=== PATIENT | female | born 1945 | race Caucasian/White ===

== ENCOUNTER 2021-05-11 17:48 | Inpatient (IN) | payer MEDICARE, OTHER ==
[~2021-05-11] VITALS: Ht 154.9 cm; Wt 65.8 kg
[~2021-05-11 17:48] MED LIST: CARV25TA2 PO; DIGO250T PO; ESOM40CA PO; FURO40TA5 PO; GABA-534 PO; HYDR-4077 PO; ISOS60TA72 PO; LORA1TAB PO; NITR0.4T SL; RIVA10TA PO; ROSU10TA2 PO; [UNRECOGNIZED DRUG - CODE] PO
--- NOTE | 2021-05-11 18:01 | NUR ---
BIB ra c/o R sided chest pain since last night with sob. The patient denies pain at this time. Respiration regular and unlabored. Attached to the monitor.
[2021-05-11] MEDS ORDERED: METO50TA16 PO (18:06)
[2021-05-11] MEDS ORDERED: LINA145C PO (18:06)
[2021-05-11] MEDS ORDERED: DEXL60CA3 PO (18:06)
[2021-05-11] MEDS ORDERED: OLME20TA23 PO (18:06)
[2021-05-11] MEDS ORDERED: RIVA10TA PO (18:07)
[2021-05-11] MEDS ORDERED: NITROGLYCERIN PACKET 1 GM PACKET TD ONE (18:30)
[2021-05-11 18:33] LABS: BASOPHILS % (AUTO) 0.8 % (0.0-2.0); EOSINOPHILS % (AUTO) 0.3 % (0.0-6.0); HEMATOCRIT 30 % (33-45); HEMOGLOBIN 9.8 g/dL (11.5-14.8); LYMPHOCYTES % (AUTO) 24.5 % (20.0-44.0); MEAN CORPUSCULAR HGB CONC 33 g/dl (31.0-36.0); MEAN CORPUSCULAR VOLUME 84 fL (82-100); MONOCYTES # (AUTO) 0.5 K/uL (0.1-1.30); MONOCYTES % (AUTO) 12.4 % (2.0-12.0); NEUTROPHILS # (AUTO) 2.6 K/uL (1.8-8.9); PLATELET COUNT (AUTO) 178 K/uL (150-450); RED BLOOD CELL COUNT(AUTO) 3.58 MIL/uL (4.0-5.2); WHITE BLOOD COUNT (AUTO) 4.2 K/uL (4.3-11.0)
--- NOTE | 2021-05-11 18:36 | NUR ---
covid swab done and sent to the lab
[2021-05-11 18:40] LABS: CALCIUM, SERUM 8.9 mg/dL (8.5-10.1); CREATININE 0.8 mg/dL (0.6-1.3); POTASSIUM 3.3 mmol/L (3.5-5.1)
[2021-05-11] MEDS ORDERED: NITROGLYCERIN PACKET 1 GM PACKET ONE (18:42)
[2021-05-11 18:50] LABS: ALBUMIN 3.4 g/dL (3.4-5.0); BILIRUBIN,DIRECT 0.3 mg/dL (0.0-0.2); BILIRUBIN,TOTAL 0.8 mg/dL (0.2-1.0); TOTAL PROTEIN, SERUM 6.9 g/dL (6.4-8.2)
--- NOTE | 2021-05-11 19:21 | NUR ---
ASSUMED CARE. PT RESTING QUIETLY, NO ACUTE DISTRESS NOTED, RESP EVEN AND UNLABORED. NO PAIN OR DISCOMFORT NOTED AT THIS TIME. PT FAMILY EMMBER AT BEDSIDE.
--- NOTE | 2021-05-11 20:16 | NUR ---
ER SPOKE TO DR. PHELPS REGARDING PT ADMISSION.
[2021-05-11] MEDS ORDERED: DOCUSATE SODIUM 100 MG CAPSULE PO PRN (21:00)
[2021-05-11] MEDS ORDERED: MAG HYDROX/AL HYDROX/SIMETH 30 ML UDC PO PRN (21:00)
[2021-05-11] MEDS ORDERED: ACETAMINOPHEN 325 MG TABLET PO PRN (21:00)
--- NOTE | 2021-05-11 21:01 | NUR ---
REPORT CALLED TO COIL FINISHERMARK ODOM. WILL TRANSPORT PT VIA ACLS PROTOCOL.
[2021-05-11 21:15] VITALS: BP 157/68
--- NOTE | 2021-05-11 21:15 | NUR ---
Patient admitted at 2114 in stable condition. Brought up by ER nurse. VS 157/68, HR 72, O2 98%, temp 98.8. In no distress. Zofran given for nausea with one episode of emesis. Family at bedside and able to translate for patient history/admitting info. A&Ox4, Pupils equal and reactive to light. Heart rate irregular upon auscultation, shows afib on monitor. L chest pacemaker. Slightly diminished lung sounds to L base. Bowel sounds active x4 quadrants. Legs with +1 pitting edema. Educated patient about bed rest. Oriented patient to unit. Bed in lowest position, side rails up x2, bed locked, semi fowlers. Will continue to monitor.
[2021-05-11] MEDS: ONDANSETRON HCL/PF 4 MG/2 ML VIAL IVP PRN (21:23)
[2021-05-11] MEDS: MORPHINE SULFATE INJ 2 MG/ML DISP.SYRIN IV PRN (22:15)
[2021-05-11] MEDS: NITROGLYCERIN 0.4 MG/TAB BOTTLE SL PRN ×2 (23:49→23:58)
--- NOTE | 2021-05-11 23:51 | NUR ---
Patient c/o increased chest pain 04/29 to L side radiating to back and L shoulder now. First dose of Nitro given at 2350.
--- NOTE | 2021-05-11 23:58 | NUR ---
chest pain still 7/10 to L side radiating to back and L shoulder unrelieved by first dose of nitro. 2nd dose given.
[2021-05-12] VITALS: BP_SYST 119; BP_SYST 152; BP_DIAS 63; BP_DIAS 80
[2021-05-12] MEDS: NITROGLYCERIN 0.4 MG/TAB BOTTLE SL PRN (00:13)
--- NOTE | 2021-05-12 00:40 | NUR ---
CP unrelieved by Morphine and 3 doses of nitro new order from STRIPPER MACHINE OPERATOR Wilstein STAT EKG and troponin.
--- NOTE | 2021-05-12 01:00 | NUR ---
2L NC applied for comfort pt reports SOB, RR 24.
--- NOTE | 2021-05-12 01:27 | NUR ---
Patient reports chest pain decreasing to 3/10. Sweating and tachypnea has ceased. RR 19. Will continue to monitor.
[2021-05-12] MEDS: MORPHINE SULFATE INJ 2 MG/ML DISP.SYRIN IV PRN ×2 (02:19→10:00)
[2021-05-12 04:00] VITALS: BP 152/85
--- NOTE | 2021-05-12 04:41 | NUR ---
Patient woke up with another episode of chest pain this time middle of the chest pressure non-radiating. diaphoresis and chills, tachypnea 22 breaths per minute, O2 2L NC on for comfort. Adjusted temperature in room to keep patient comfortable. THREAD SINGER states just continue giving morphine as per order for now. Continue with serial troponin next 1030.
[2021-05-12] MEDS: ONDANSETRON HCL/PF 4 MG/2 ML VIAL IVP PRN ×3 (05:02→16:57)
--- NOTE | 2021-05-12 05:22 | NUR ---
patient calling again for pain. episode of vomiting x1 clear yellow in color. New order from on-call BAG SORTER to make patient NPO and 1mg Morphine one time dose NOW. extra
[2021-05-12] MEDS ORDERED: MORPHINE SULFATE INJ 2 MG/ML DISP.SYRIN IV ONE (05:30)
--- NOTE | 2021-05-12 06:36 | NUR ---
INSURANCE BILLING SPECIALIST CLOSING NOTES Patient is awake A&Ox4, reports that the morphine relieved her pain a little bit so that it is now 5/10, no longer sweating, having chills, or n/v. Vital signs have been stable throughout the night. 150s SBP or lower. Is looking forward to see MD during rounds,
--- NOTE | 2021-05-12 06:38 | NUR ---
On monitor patient has been Afib with V pacing
[2021-05-12 06:46] LABS: BASOPHILS % (AUTO) 0.7 % (0.0-2.0); EOSINOPHILS % (AUTO) 0.3 % (0.0-6.0); HEMATOCRIT 31 % (33-45); HEMOGLOBIN 10.4 g/dL (11.5-14.8); LYMPHOCYTES % (AUTO) 16.6 % (20.0-44.0); MEAN CORPUSCULAR HGB CONC 33 g/dl (31.0-36.0); MEAN CORPUSCULAR VOLUME 84 fL (82-100); MONOCYTES # (AUTO) 0.5 K/uL (0.1-1.30); MONOCYTES % (AUTO) 8.5 % (2.0-12.0); NEUTROPHILS # (AUTO) 4.6 K/uL (1.8-8.9); NEUTROPHILS % (AUTO) 73.9 % (43.0-81.0); PLATELET COUNT (AUTO) 178 K/uL (150-450); RED BLOOD CELL COUNT(AUTO) 3.74 MIL/uL (4.0-5.2); WHITE BLOOD COUNT (AUTO) 6.3 K/uL (4.3-11.0)
[2021-05-12 07:23] LABS: THYROID STIMULATING HORMONE 2.066 uIU/mL (0.358-3.74)
--- NOTE | 2021-05-12 07:30 | NUR ---
JUNIOR STAFF ACCOUNTANT NOTES PT IN BED, AWAKE, ALERT AND ABLE TO MAKE NEEDS KNOWN, NO COMPLAINT AT THIS TIME, RESPIRAITONS NORMAL, CALL LIGHT WITHIN REACH, KEPT WARM AND COMFORTABLE IN BED.
[2021-05-12 07:36] LABS: DIGOXIN 0.72 ng/mL (0.90-2.00)
[2021-05-12 08:12] VITALS: BP 145/83
[2021-05-12] MEDS ORDERED: NITROGLYCERIN 0.4 MG/TAB BOTTLE SL ONE (08:30)
[2021-05-12] MEDS ORDERED: LORAZEPAM INJ 2 MG/ML VIAL IV PRN (08:30)
[2021-05-12] MEDS ORDERED: METOPROLOL TARTRATE INJ 5 MG/5 ML AMPUL IVP PRN (08:30)
[2021-05-12] MEDS ORDERED: ENOXAPARIN SODIUM 60 MG/0.6 ML DISP.SYRIN SQ SCH ×2 (09:00)
[2021-05-12] MEDS: AMBRISENTAN 5 MG PO SCH (09:00)
[2021-05-12] MEDS ORDERED: METOPROLOL TARTRATE 50 MG TABLET PO SCH (09:00)
[2021-05-12] MEDS ORDERED: Medication Not On Formulary EA (Linaclotide (Linzess) 145 MCG) PO SCH (09:00)
[2021-05-12] MEDS ORDERED: RIVAROXABAN 10 MG TABLET PO SCH (09:00)
[2021-05-12] MEDS: ATORVASTATIN 40 MG TABLET PO SCH (09:01)
[2021-05-12] MEDS: GABAPENTIN 300 MG CAPSULE PO SCH (09:01)
[2021-05-12] MEDS: LOSARTAN POTASSIUM 50 MG TABLET PO SCH (09:03)
[2021-05-12] MEDS: PANTOPRAZOLE 40 MG TABLET.DR PO SCH (09:03)
[2021-05-12] MEDS: ISOSORBIDE MONONITRATE (30MG) 30 MG TAB.SR.24H PO SCH (09:03)
[2021-05-12] MEDS: hydrALAZINE HCL 50 MG TABLET PO SCH ×3 (09:04→17:00)
[2021-05-12] MEDS: FUROSEMIDE 40 MG TABLET PO SCH (09:04)
[2021-05-12] MEDS: ASPIRIN 81 MG TAB.CHEW PO SCH (09:06)
[2021-05-12 09:16] LABS: ALBUMIN 3.5 g/dL (3.4-5.0); BILIRUBIN,TOTAL 0.8 mg/dL (0.2-1.0); CREATININE 0.9 mg/dL (0.6-1.3); POTASSIUM 3.2 mmol/L (3.5-5.1); TOTAL PROTEIN, SERUM 7.2 g/dL (6.4-8.2)
[2021-05-12 09:26] LABS: MAGNESIUM 2.1 mg/dL (1.8-2.4); PHOSPHORUS 2.2 mg/dL (2.5-4.9)
--- NOTE | 2021-05-12 09:30 | NUR ---
TELECOMMUNICATIONS MANAGER NOTES PT IN BED, FAMILY AT BEDSIDE, SEEN AND EXAMAXINED BY DR. SAMAYOA, PLAN OF CARE DISCUSSED WITH FAMILY MEMBERS, VERBALIZED UNDERSTANDING.
[2021-05-12] MEDS: METOPROLOL TARTRATE 50 MG TABLET PO SCH (12:00)
[2021-05-12] MEDS: DIGOXIN 0.25 MG TABLET PO SCH (13:49)
[2021-05-12] MEDS ORDERED: SOD FERRIC GLUC 125 MG in IV NS 0.9% 100 ML IV SCH (14:00)
[2021-05-12] MEDS ORDERED: POTASSIUM CHLORIDE 20 MEQ TAB.PRT.SR PO ONE (15:30)
[2021-05-12] MEDS ORDERED: K PHOS NEUTRAL 250 MG TABLET PO ONE (15:30)
[2021-05-12 16:22] VITALS: BP 121/56
--- NOTE | 2021-05-12 18:53 | NUR ---
DINKEY LOCOMOTIVE ENGINEER NOTES PT IN BED, AWAKE, ALERT, FAMILY AT BEDSIDE, WITH EPISODES OF NAUSEA AND VOMITING AFTER GOING TO THE COMMODE, ZOFRAN GIVEN BUT STILL UNABLE TO TOLERATE PM MEDS, DR. BOOTH INFORMED, ORDERED REGLAN IV, NOTED AND CARRIED OUT, FAMILY INFORMED, WILL ENDORSE TO FURNISHINGS CONSERVATOR NURSE FOR CONTINUITY OF CARE.
--- NOTE | 2021-05-12 19:37 | NUR ---
wheel alignment mechanic Opening Notes Patient was last seen sleeping in bed. Patient's alert and oriented x4. Patient's on 2 liters of oxygen via nasal cannula with no respiratory distress noted. Patient's connected to a tele monitor with no cardiac distress noted. Patient has an IV access on her left antecubital gauge #18, which is intact, patent, and flushing well. Safety measures in place: Bed locked, bed alarm on, side rails up x3, and call light within reach of the patient. Will continue to monitor the patient.
[2021-05-12 20:00] VITALS: BP 138/68
[2021-05-12] MEDS ORDERED: METOCLOPRAMIDE HCL 10 MG/2 ML VIAL IV SCH (20:00)
[2021-05-13] VITALS: BP 121/69
[2021-05-13] MEDS: METOPROLOL TARTRATE 50 MG TABLET PO SCH ×3 (00:13→12:00)
[2021-05-13 04:00] VITALS: BP 139/72
[2021-05-13] MEDS ORDERED: METOCLOPRAMIDE HCL 10 MG/2 ML VIAL IV PRN (04:00)
[2021-05-13 07:25] LABS: CALCIUM, SERUM 8.6 mg/dL (8.5-10.1); PHOSPHORUS 3.1 mg/dL (2.5-4.9); POTASSIUM 3.2 mmol/L (3.5-5.1)
--- NOTE | 2021-05-13 07:30 | NUR ---
RN OPENING NOTES. Patient is alert and oriented. Breathing even and unlabored. On 2 lpm via n/c with 02 sat of 98%. Bed is in lowest and locked position. Call light with in reach.
[2021-05-13 08:00] VITALS: BP 131/79
[2021-05-13] MEDS: POTASSIUM CHLORIDE 20 MEQ TAB.PRT.SR PO SCH ×3 (08:37→11:04)
[2021-05-13] MEDS: AMBRISENTAN 5 MG PO SCH (08:37)
[2021-05-13] MEDS: ATORVASTATIN 40 MG TABLET PO SCH (08:37)
[2021-05-13] MEDS: PANTOPRAZOLE 40 MG TABLET.DR PO SCH (08:37)
[2021-05-13] MEDS: hydrALAZINE HCL 50 MG TABLET PO SCH ×2 (08:38→13:00)
[2021-05-13] MEDS: ISOSORBIDE MONONITRATE (30MG) 30 MG TAB.SR.24H PO SCH (08:38)
[2021-05-13] MEDS: GABAPENTIN 300 MG CAPSULE PO SCH (08:38)
[2021-05-13] MEDS: LOSARTAN POTASSIUM 50 MG TABLET PO SCH (08:38)
[2021-05-13] MEDS: ASPIRIN 81 MG TAB.CHEW PO SCH (08:38)
[2021-05-13] MEDS ORDERED: POTASSIUM PHOSPHATE MM 7.5 MMOL in IV NS 0.9% 100 ML IV SCH (09:30)
[2021-05-13] MEDS ORDERED: POTASSIUM PHOSPHATE MM 15 MMOL in IV NS 0.9% 250 ML IV SCH (09:30)
[2021-05-13] MEDS: FUROSEMIDE 40 MG TABLET PO SCH (10:08)
[2021-05-13 13:00] VITALS: BP 96/56
[2021-05-13] MEDS: DIGOXIN 0.25 MG TABLET PO SCH (13:00)
--- NOTE | 2021-05-13 14:03 | NUR ---
Patient was discharged to home at apprx 1330 with grandson. Patient is alert and oriented. Breathing even and unlabored. No c/o pain or discomfort. Patient was on 2 lpm but titrated to room air and noted with 02 sat of 95%. Per Patient she has 02 at home. Patient left the facility in stable condition. Refused digoxin for 1300 and stated that she will take it at home. Vitals checked. Iv site to left arm discontinued. To follow up with PCP. Patient did not c/o any chest pain or discomfort.
[2021-05-13] MEDS ORDERED: RIVAROXABAN 15 MG TABLET PO SCH (17:00)
[2021-05-13] MEDS ORDERED: RIVAROXABAN 10 MG TABLET PO SCH (17:00)
== END 2021-05-13 13:30 | disposition home or self-care (01) | DRG 281 ==
LOC: ER 17:54 → TELE 21:03 → MED 05-13 10:13
PROVIDERS: ADMIT Registered Nurse; ATTEND Internal Medicine
DX: I21.A1 Myocardial infarction type 2 (principal); I48.20 Chronic atrial fibrillation, unspecified; I50.32 Chronic diastolic (congestive) heart failure; E11.9 Type 2 diabetes mellitus without complications; I11.0 Hypertensive heart disease with heart failure; E78.5 Hyperlipidemia, unspecified; I25.10 Atherosclerotic heart disease of native coronary artery without angina pectoris; Z20.822 Contact with and (suspected) exposure to COVID-19; E87.6 Hypokalemia; Z87.891 Personal history of nicotine dependence; Z95.810 Presence of automatic (implantable) cardiac defibrillator; Z79.01 Long term (current) use of anticoagulants; D64.9 Anemia, unspecified; Z88.0 Allergy status to penicillin
CPT/HCPCS: 36415; 71045-TC; 80048-TC; 80053-TC; 80061-TC; 80076-TC; 80162-TC; 82728-TC; 83540-TC; 83735-TC; 84100-TC; 84443-TC; 84484-TC; 85025-TC; 87081-TC; 93307-TC; 93970-TC; C9803; G0378; J2060; J2270; J2405; J2765; J2916; J3490; J7030; J7050

== ENCOUNTER 2021-10-30 15:22 | Emergency (ER) | payer MEDICARE, OTHER ==
[~2021-10-30] VITALS: Ht 152.4 cm; Wt 72.6 kg
[~2021-10-30 15:22] MED LIST changes: -CARV25TA2 PO; +DEXL60CA3 PO; -ESOM40CA PO; +LINA145C PO; -LORA1TAB PO; +METO50TA16 PO; +OLME20TA23 PO
--- NOTE | 2021-10-30 15:25 | NUR ---
AAOX3, BIB family c/o chest pain -- pressure-like pain and black tarry stool x 3 days. Skin is warm and dry. Placed on furniture finisher helper. BASELINE: NSR. No apparent distress noted. Awaiting md for eval.
--- NOTE | 2021-10-30 15:43 | NUR ---
Dr Barba at for luisal.
[2021-10-30] MEDS ORDERED: IV NS 0.9% 1,000 ML BAG IV ONE (16:00)
--- NOTE | 2021-10-30 16:22 | NUR ---
PT LAYUNG IN BED COMFORTABLY, NEEDS MET
--- NOTE | 2021-10-30 17:23 | NUR ---
PT LAYING IN BED, DAUGHTER AT BEDSIDE, NEEDS MET, AAOX4
[2021-10-30 17:35] LABS: BASOPHILS % (AUTO) 0.4 % (0.0-2.0); EOSINOPHILS % (AUTO) 0.5 % (0.0-6.0); HEMATOCRIT 30 % (33-45); HEMOGLOBIN 10.1 g/dL (11.5-14.8); LYMPHOCYTES # (AUTO) 1.2 K/uL (0.8-4.8); LYMPHOCYTES % (AUTO) 15.5 % (20.0-44.0); MEAN CORPUSCULAR HGB CONC 34 g/dl (31.0-36.0); MEAN CORPUSCULAR VOLUME 92 fL (82-100); MONOCYTES # (AUTO) 0.6 K/uL (0.1-1.30); MONOCYTES % (AUTO) 7.2 % (2.0-12.0); NEUTROPHILS # (AUTO) 6.2 K/uL (1.8-8.9); NEUTROPHILS % (AUTO) 76.4 % (43.0-81.0); PLATELET COUNT (AUTO) 223 K/uL (150-450); RED BLOOD CELL COUNT(AUTO) 3.27 MIL/uL (4.0-5.2); WHITE BLOOD COUNT (AUTO) 8.1 K/uL (4.3-11.0)
[2021-10-30 17:47] LABS: OCCULT BLOOD STOOL POSITIVE (NEGATIVE)
[2021-10-30 18:03] LABS: ALBUMIN 3.7 g/dL (3.4-5.0); BILIRUBIN,DIRECT 0.2 mg/dL (0.0-0.2); BILIRUBIN,TOTAL 0.7 mg/dL (0.2-1.0); CALCIUM, SERUM 8.1 mg/dL (8.5-10.1); CREATININE 0.7 mg/dL (0.6-1.3); POTASSIUM 2.9 mmol/L (3.5-5.1); TOTAL PROTEIN, SERUM 7.2 g/dL (6.4-8.2)
[2021-10-30] MEDS ORDERED: FUROSEMIDE 40 MG/4 ML VIAL IV ONE (18:30)
[2021-10-30] MEDS ORDERED: POTASSIUM CHLORIDE 20 MEQ TAB.PRT.SR PO ONE ×2 (18:30→18:34)
[2021-10-30] MEDS ORDERED: FUROSEMIDE 40 MG/4 ML VIAL ONE (18:34)
--- NOTE | 2021-10-30 18:44 | NUR ---
Patient discharged to home in stable condition. Written and verbal after care instructions given. Patient verbalizes understanding of instruction.
--- NOTE | 2021-10-30 18:44 | NUR ---
IV removed. Catheter intact and site benign. Pressure and 4x4 applied to site. No bleeding noted.
[2021-10-30 19:02] VITALS: BP 144/71
== END 2021-10-30 18:44 | disposition home or self-care (01) ==
LOC: ER 15:25
DX: K92.2 Gastrointestinal hemorrhage, unspecified (principal); I10 Essential (primary) hypertension; Z95.0 Presence of cardiac pacemaker; Z90.49 Acquired absence of other specified parts of digestive tract; Z88.0 Allergy status to penicillin; Z79.899 Other long term (current) drug therapy; Z79.01 Long term (current) use of anticoagulants
CPT/HCPCS: 36415; 71045; 80048; 80076; 82272; 84484; 85025; 85730; 86850; 93005 ×2; 96361; 96374; 99285; A6403; J1940; J7030

== ENCOUNTER 2022-07-14 03:43 | Inpatient (IN) | payer MEDICARE, OTHER ==
[~2022-07-14] VITALS: Ht 162.6 cm; Wt 68.5 kg
--- NOTE | 2022-07-14 03:50 | NUR ---
TO ER BED 10. [id number] FROM HOME C/O CHEST PRESSURE W/ ASSOCIATED SOB X YESTERDAY. PER EMS , O2 SAT 91% ROOM AIR. PT IS ALERT AND ORIENTED. RR EVEN AND NON LABORED ON NASAL CANNULA 2 L OF O2. CONNECTED TO MONITOR. AWAITING MD DOVE
[2022-07-14] MEDS ORDERED: IPRATROPIUM NEB FS 0.5 MG/2.5 ML AMPUL.NEB NEB ONE (04:00)
[2022-07-14] MEDS ORDERED: ALBUTEROL FS 2.5 MG/3 ML VIAL.NEB NEB ONE (04:00)
--- NOTE | 2022-07-14 04:00 | NUR ---
IV CHRIS ESTABLISHED, LAC20G
--- NOTE | 2022-07-14 04:01 | NUR ---
BLOOD COLLECTED AND SENT TO LAB
--- NOTE | 2022-07-14 04:05 | NUR ---
RT CALLED FOR BREATHING TX
[2022-07-14] MEDS ORDERED: IPRATROPIUM NEB FS 0.5 MG/2.5 ML AMPUL.NEB ONE (04:07)
[2022-07-14] MEDS ORDERED: ALBUTEROL FS 2.5 MG/3 ML VIAL.NEB ONE (04:07)
[2022-07-14 04:08] LABS: BASOPHILS # (AUTO) 0.1 K/uL (0.0-0.2); BASOPHILS % (AUTO) 0.6 % (0.0-2.0); EOSINOPHILS % (AUTO) 1.5 % (0.0-6.0); HEMATOCRIT 25 % (33-45); HEMOGLOBIN 7.9 g/dL (11.5-14.8); LYMPHOCYTES # (AUTO) 1.2 K/uL (0.8-4.8); LYMPHOCYTES % (AUTO) 13.4 % (20.0-44.0); MEAN CORPUSCULAR HGB CONC 32 g/dl (31.0-36.0); MEAN CORPUSCULAR VOLUME 86 fL (82-100); MONOCYTES # (AUTO) 0.8 K/uL (0.1-1.30); MONOCYTES % (AUTO) 8.4 % (2.0-12.0); NEUTROPHILS # (AUTO) 6.8 K/uL (1.8-8.9); NEUTROPHILS % (AUTO) 76.1 % (43.0-81.0); PLATELET COUNT (AUTO) 254 K/uL (150-450); RED BLOOD CELL COUNT(AUTO) 2.89 MIL/uL (4.0-5.2)
[2022-07-14 04:12] LABS: CALCIUM, SERUM 8.9 mg/dL (8.5-10.1); CARBON DIOXIDE 28 mmol/L (21-32); CHLORIDE 104 mmol/L (98-107); GLUCOSE 146 mg/dL (74-106); POTASSIUM 3.6 mmol/L (3.5-5.1); SODIUM SERUM 140 mmol/L (136-145); UREA NITROGEN, BLOOD 26 mg/dL (7-18)
[2022-07-14] MEDS ORDERED: IOHEXOL-350 100 ML VIAL IV ONE (04:34)
--- NOTE | 2022-07-14 04:49 | NUR ---
COVID SWAB COLLECTED
--- NOTE | 2022-07-14 04:50 | NUR ---
PT TAKEN TO CT SCAN VIA KAREN
--- NOTE | 2022-07-14 05:25 | NUR ---
PT RETURNED FROM CT, RECONNECTED TO MONITOR
--- NOTE | 2022-07-14 05:29 | NUR ---
BLOOD TRANSFUSSION CONSENT FORM SIGNED BY PT
[2022-07-14] MEDS ORDERED: DEXTROSE 50%-WATER 50 ML DISP.SYRIN IV PRN (05:30)
[2022-07-14] MEDS ORDERED: hydrALAZINE HCL IV 20 MG VIAL IV PRN (05:30)
[2022-07-14] MEDS ORDERED: MORPHINE SULFATE INJ 2 MG/ML DISP.SYRIN IV PRN (05:30)
--- NOTE | 2022-07-14 06:57 | NUR ---
PT GOING TO ROOM 108
--- NOTE | 2022-07-14 07:25 | NUR ---
RECEVED PT FROM SHERI RN PT AWAKE AND ALERT RESPIRATION SPONT AND EASY no sob no chest pain resting and comforatble at this time
[2022-07-14] MEDS ORDERED: ALBUTEROL SULFATE 8 GM HFA.AER.AD IH PRN (07:30)
[2022-07-14] MEDS: BLOOD SUGAR DIAGNOSTIC 1 EACH STRIP IN SCH ×4 (07:48→21:13)
--- NOTE | 2022-07-14 07:50 | NUR ---
HAND OFF TO IVONNE RN TO ROOM 108 VIA MATT STABLE VS STABLE NO CHEST PAIN NO SOB
--- NOTE | 2022-07-14 08:30 | NUR ---
RN NOTE PT RECEIVED IN ROOM 108. REPORT RECEIVED. PT ON 3L O2 NC WITH NO SIGNS OF LABORED BREATHING AT THIS TIME, PT DOES NOT REPORT CHEST PAIN. VITAL SIGNS STABLE. PT PLACED ON TELE MONITOR. RIGHT AC 20G IN PLACE PATENT AND FLUSHING WELL. BED LOCKED AND IN LOWEST POSITION, CALL LIGHT WITHIN REACH, 3 SIDE RAILS UP.
[2022-07-14 08:31] LABS: HEMOGLOBIN 7.8 g/dL (11.5-14.8)
[2022-07-14] MEDS ORDERED: Medication Not On Formulary EA (Linaclotide (Linzess) 145 MCG) PO SCH (09:00)
[2022-07-14] MEDS ORDERED: HEPARIN SODIUM, PORCINE 5000 UNITS/1 ML VIAL SQ SCH (09:00)
[2022-07-14] MEDS: ATORVASTATIN 10 MG TABLET PO SCH (09:30)
[2022-07-14] MEDS: FUROSEMIDE 40 MG TABLET PO SCH (09:30)
[2022-07-14] MEDS: METOPROLOL TARTRATE 50 MG TABLET PO SCH ×2 (09:31→16:33)
[2022-07-14] MEDS: DIGOXIN 0.25 MG TABLET PO SCH (09:31)
[2022-07-14] MEDS: LOSARTAN POTASSIUM 50 MG TABLET PO SCH (09:31)
[2022-07-14] MEDS: hydrALAZINE HCL 50 MG TABLET PO SCH ×3 (09:31→16:33)
[2022-07-14] MEDS: GABAPENTIN 300 MG CAPSULE PO SCH (09:31)
[2022-07-14] MEDS: ISOSORBIDE MONONITRATE (30MG) 30 MG TAB.SR.24H PO SCH (09:31)
[2022-07-14] MEDS: RIVAROXABAN 10 MG TABLET PO SCH (11:19)
[2022-07-14 11:31] VITALS: BP 132/68
[2022-07-14 12:00] VITALS: BP 170/59
[2022-07-14] MEDS ORDERED: POTASSIUM CHLORIDE 20 MEQ TAB.PRT.SR PO ONE (12:00)
[2022-07-14] MEDS ORDERED: BUMETANIDE INJ 4 MG in IV NS 0.9% 24 ML IV ONE ×4 (12:00)
[2022-07-14 12:16] VITALS: BP 170/59
[2022-07-14] MEDS: IPRATROPIUM/ALBUTEROL INHALER IH SCH ×2 (12:44→21:12)
--- NOTE | 2022-07-14 15:00 | NUR ---
RN NOTE 1 UNIT PRBC GIVEN, NO SIGNS OF ADVERSE REACTION NOTED, PT TOLERATED WELL.
[2022-07-14 15:38] LABS: HEMOGLOBIN 8.7 g/dL (11.5-14.8)
[2022-07-14 16:00] VITALS: BP 139/54
[2022-07-14] MEDS: ACETAMINOPHEN 325 MG TABLET PO PRN (18:04)
--- NOTE | 2022-07-14 19:00 | NUR ---
RN NOTE PATIENT IN BED, AO X 4, BREATHING EVEN AND UNLABORED, SATURATION AT 94% ON 2L VIA NC, A-PACED/V-PACED ON THE MONITOR, HR IS 70. IV LINE AT RAC 20G PATENT AND FLUSHING WELL, SALINE LOCKED. PATIENT AMBULATORY WITH CANE AND STABY ASSIST, COMPLAINS OF GENERALIZED WEAKNESS. SAFETY MEASURES IMPLEMENTED, BED IS LOCKED AND AT LOWEST POSITION, HOB ELEVATED, SIDE RAILS UP X 2, CALL LIGHT WITHIN REACH OF PATIENT. WILL CONTINUE TO MONITOR AND REASSESS.
[2022-07-14 20:00] VITALS: BP 129/57
--- NOTE | 2022-07-14 22:40 | NUR ---
RT NOTE Admin Combivent tx by Keenan SAMPSON. MARK Locke aware. Tx tolerated with no adverse reaction.
[2022-07-14 23:45] LABS: HEMOGLOBIN 8.6 g/dL (11.5-14.8)
[2022-07-15] VITALS: BP 135/49
[2022-07-15] MEDS: ACETAMINOPHEN 325 MG TABLET PO PRN (00:07)
[2022-07-15] MEDS: IPRATROPIUM/ALBUTEROL INHALER IH SCH ×4 (01:48→20:42)
[2022-07-15 04:00] VITALS: BP 114/49
[2022-07-15 06:13] LABS: BASOPHILS % (AUTO) 0.5 % (0.0-2.0); EOSINOPHILS % (AUTO) 1.9 % (0.0-6.0); HEMATOCRIT 27 % (33-45); HEMOGLOBIN 8.6 g/dL (11.5-14.8); LYMPHOCYTES # (AUTO) 1.5 K/uL (0.8-4.8); LYMPHOCYTES % (AUTO) 19.1 % (20.0-44.0); MEAN CORPUSCULAR HGB CONC 33 g/dl (31.0-36.0); MEAN CORPUSCULAR VOLUME 85 fL (82-100); MONOCYTES # (AUTO) 0.7 K/uL (0.1-1.30); MONOCYTES % (AUTO) 9.4 % (2.0-12.0); NEUTROPHILS # (AUTO) 5.3 K/uL (1.8-8.9); NEUTROPHILS % (AUTO) 69.1 % (43.0-81.0); PLATELET COUNT (AUTO) 231 K/uL (150-450); RED BLOOD CELL COUNT(AUTO) 3.12 MIL/uL (4.0-5.2); WHITE BLOOD COUNT (AUTO) 7.7 K/uL (4.3-11.0)
[2022-07-15 06:45] LABS: BILIRUBIN,TOTAL 0.8 mg/dL (0.2-1.0); CALCIUM, SERUM 8.8 mg/dL (8.5-10.1); CREATININE 0.8 mg/dL (0.6-1.3); MAGNESIUM 2.3 mg/dL (1.8-2.4); PHOSPHORUS 3.8 mg/dL (2.5-4.9); POTASSIUM 3.1 mmol/L (3.5-5.1); TOTAL PROTEIN, SERUM 6.4 g/dL (6.4-8.2)
--- NOTE | 2022-07-15 07:40 | NUR ---
SCIENTIFIC INFORMATICS LEADER OPENING NOTE RECEIVED PATIENT IN BED. ALERT AND AWAKE. ORIENTED X4. PATIENT ON OXYGEN VIA NASAL CANNULA NO SOB NOTED. WITH LEFT AC 20 G INTACT AND FLUSHING WELL. ON TELE MONITOR A PACE, AFIB HEART RATE= 65. BED IN LOWER LOCK POSITION. CALL LIGHT WITHIN REACH. WILL CONTINUE TO MONITOR.
[2022-07-15] MEDS: BLOOD SUGAR DIAGNOSTIC 1 EACH STRIP IN SCH ×4 (08:33→21:11)
[2022-07-15 08:38] VITALS: BP 150/77
[2022-07-15] MEDS: FUROSEMIDE 40 MG TABLET PO SCH (08:45)
[2022-07-15] MEDS: GABAPENTIN 300 MG CAPSULE PO SCH (08:45)
[2022-07-15] MEDS: ATORVASTATIN 10 MG TABLET PO SCH (08:46)
[2022-07-15] MEDS: hydrALAZINE HCL 50 MG TABLET PO SCH ×3 (08:46→16:17)
[2022-07-15] MEDS: LOSARTAN POTASSIUM 50 MG TABLET PO SCH (08:47)
[2022-07-15] MEDS: RIVAROXABAN 10 MG TABLET PO SCH (08:48)
--- NOTE | 2022-07-15 09:25 | NUR ---
POLARITY TESTER NOTE DR PHELPS AT BEDSIDE SEEN PATIENT NOTIFIES THAT PATIENT C\O VERY TIRED STATED HAT RECHECK LABS ,WILL F\U
[2022-07-15] MEDS ORDERED: FUROSEMIDE 40 MG/4 ML VIAL IV SCH (09:30)
[2022-07-15] MEDS: METOPROLOL TARTRATE 50 MG TABLET PO SCH ×2 (09:50→16:16)
[2022-07-15] MEDS: ISOSORBIDE MONONITRATE (30MG) 30 MG TAB.SR.24H PO SCH (09:51)
[2022-07-15] MEDS: POTASSIUM CHLORIDE 20 MEQ TAB.PRT.SR PO SCH ×3 (09:51→12:44)
[2022-07-15] MEDS: ONDANSETRON HCL/PF 4 MG/2 ML VIAL IVP PRN (09:59)
--- NOTE | 2022-07-15 10:15 | NUR ---
COMBINATION MAN NOTES ASSISTED PATIENT TO THE RESTROOM, KEEP CLEAN AND DRY. PATIENT C/O NAUSEA AND VOMITING, PRN ZOFRAN GIVEN ORDERED, BEDSIDE COMMODE PLACED AT BEDSIDE. CALL LIGHT WITHIN REACH. WILL CONTINUE TO MONITOR.
[2022-07-15] MEDS: DIGOXIN 0.25 MG TABLET PO SCH (10:39)
[2022-07-15 12:00] VITALS: BP 114/47
--- NOTE | 2022-07-15 12:59 | NUR ---
telecasting engineer note per dr david Manuel ok to give Lasix but hold Apresoline now bp 116/45
[2022-07-15] MEDS: FUROSEMIDE 40 MG/4 ML VIAL IV SCH ×2 (13:04→17:02)
[2022-07-15] MEDS: AMBRISENTAN 5 MG PO SCH (13:27)
[2022-07-15 15:00] LABS: HEMOGLOBIN 9.1 g/dL (11.5-14.8)
--- NOTE | 2022-07-15 15:33 | NUR ---
FORENSIC BALLISTICS EXPERT NOTES ROUNDS MADE. PATIENT ALERT. NO SOB NOTED. NOT IN DISTRESS. TURNED AND REPOSITIONED. BED IN LOWEST POSITION. CALL LIGHT WITHIN REACH. WILL CONTINUE TO MONITOR.
[2022-07-15 16:00] VITALS: BP 143/83
[2022-07-15] MEDS: INSULIN REGULAR, HUMAN 100 UNIT/ML 3 ML VIAL SQ PRN ×2 (17:16→21:14)
--- NOTE | 2022-07-15 18:31 | NUR ---
PIPELINE INSPECTOR CLOSING NOTE PATIENT IN BED, ALERT AND VERBALLY RESPONSIVE. PATIENT ON 2L OXYGEN VIA NASAL CANNULA NO SOB NOTED. LEFT AC IV LINE INTACT AND FLUSHING WELL. ON TELE MONITOR A PACING, AFIB HEART RATE= 69. BED IN LOWER LOCK POSITION. CALL LIGHT WITHIN REACH. WILL ENDORSE TO NIGHT NURSE FOR JACK.
[2022-07-15 20:00] VITALS: BP 136/70
[2022-07-15] MEDS: NITROGLYCERIN 0.4 MG/TAB BOTTLE SL PRN (21:06)
--- NOTE | 2022-07-15 21:06 | NUR ---
RN NOTE PT COMPLAINS OF A 3-4/10 CHEST PAIN. PT ADMINISTERED 1 TAB OF NITROGLYCERIN 0.4 MG. WILL MONITOR FOR EFFECTIVENESS.
--- NOTE | 2022-07-15 22:24 | NUR ---
PEDIATRIC ONCOLOGIST OPENING NOTE PT RECEIVED IN BED, AWAKE, A&O X4, CALM, COOPERATIVE. PT ON 2L NC WITH CURRENT O2SAT OF 94%; NO S/S OF RESP DISTRESS, NO SOB OR COUGH, NON-LABORED AND EQUAL BREATHING. PT ATTACHED TO EXTERNAL MONITOR, AV PACING WITH HR OF 91. PT NOTED TO BE AMBULATORY WITH STANDBY ASSIST. IV ACCESS ON LAC 20G, INTACT AND PATENT, FLUSHES EASILY WITH NO RESISTANCE; NO MEDS/FLUIDS INFUSING THROUGH IT. BED IN LOWEST POSITION, CALL LIGHT WITHIN REACH, SIDE RAILS UP X2. WILL CONTINUE TO MONITOR THROUGHOUT THE NIGHT.
[2022-07-15 23:25] LABS: HEMOGLOBIN 9.4 g/dL (11.5-14.8)
[2022-07-15] MEDS: TRAMADOL HCL 50 MG TABLET PO PRN (23:38)
--- NOTE | 2022-07-15 23:40 | NUR ---
RN NOTE PT REPORTS OF A 8/10 PAIN ON HER LEGS AND REQUESTS FOR TRAMADOL. PER DAUGHTER, SHE DOESN'T WANT MORPHINE FOR HER MOM AND REPORTS THAT PT TAKES TRAMADOL 50 MG AT HOME. MED RECON CHECKED, BUT TRAMADOL NOT ON THE LIST. ORDER RECEIVED FROM DR. HERNANDEZ FOR TRAMADOL 50 MG PO Q6H PRN PAIN. ORDER OBTAINED AND CARRIED OUT. PT ADMINISTERED 1 TAB OF TRAMADOL 50 MG. WILL MONITOR FOR EFFECTIVENESS.
[2022-07-16] VITALS: BP 135/61
[2022-07-16] MEDS: IPRATROPIUM/ALBUTEROL INHALER IH SCH ×2 (01:43→20:53)
[2022-07-16 04:00] VITALS: BP 142/70
[2022-07-16] MEDS: NITROGLYCERIN 0.4 MG/TAB BOTTLE SL PRN (06:11)
--- NOTE | 2022-07-16 06:14 | NUR ---
RN NOTE PT REPORTS OF HAVING CHEST PAIN AND HAS RATED IT A 5/10. PT ADMINISTERED 1 TAB OF NITROGLYCERIN 0.4MG; BP AND HR NOTED TO BE WNL. WILL MONITOR FOR EFFECTIVENESS.
--- NOTE | 2022-07-16 06:42 | NUR ---
GUT SORTER CLOSING NOTE PT REMAINS IN BED, AWAKE, A&O X4, CALM, COOPERATIVE; SLEPT INTERMITTENTLY THROUGHOUT THE NIGHT. CONTINUES TO BE ON 2L NC WITH O2SAT RANGING FROM 92%- 94%; NO S/S OF RESP DISTRESS, NO SOB OR COUGH, NON-LABORED AND EQUAL BREATHING. PT ATTACHED TO EXTERNAL MONITOR, AV PACING WITH HR RANGING FROM 78- 91. PT NOTED TO BE AMBULATORY WITH STANDBY ASSIST AND USE OF CANE. IV ACCESS ON LAC 20G, INTACT AND PATENT, FLUSHES EASILY WITH NO RESISTANCE; NO MEDS/FLUIDS INFUSING THROUGH IT. ALL DUE MEDS ADMINISTERED DURING THE NIGHT. BED IN LOWEST POSITION, CALL LIGHT WITHIN REACH, SIDE RAILS UP X2. WILL ENDORSE TO DAYSHIFT NURSE TO CONTINUE CARE.
[2022-07-16 07:13] LABS: BASOPHILS # (AUTO) 0.1 K/uL (0.0-0.2); EOSINOPHILS % (AUTO) 1.9 % (0.0-6.0); HEMATOCRIT 29 % (33-45); HEMOGLOBIN 9.5 g/dL (11.5-14.8); LYMPHOCYTES # (AUTO) 1.7 K/uL (0.8-4.8); LYMPHOCYTES % (AUTO) 21.1 % (20.0-44.0); MEAN CORPUSCULAR HGB CONC 32 g/dl (31.0-36.0); MEAN CORPUSCULAR VOLUME 85 fL (82-100); MONOCYTES # (AUTO) 0.6 K/uL (0.1-1.30); MONOCYTES % (AUTO) 7.8 % (2.0-12.0); NEUTROPHILS # (AUTO) 5.4 K/uL (1.8-8.9); NEUTROPHILS % (AUTO) 68.2 % (43.0-81.0); PLATELET COUNT (AUTO) 270 K/uL (150-450); RED BLOOD CELL COUNT(AUTO) 3.46 MIL/uL (4.0-5.2); WHITE BLOOD COUNT (AUTO) 7.9 K/uL (4.3-11.0)
--- NOTE | 2022-07-16 07:26 | NUR ---
RN OPENING NOTE PT IN BED, AWAKE, A&O X4, CALM, COOPERATIVE. ON 2L NC WITH O2SAT RANGING FROM 92%- 94%; NO S/S OF RESP DISTRESS, NO SOB OR COUGH, NON-LABORED AND EQUAL BREATHING. PT ATTACHED TO EXTERNAL MONITOR, AV PACING WITH HR RANGING FROM 78- 91. PT NOTED TO BE AMBULATORY WITH STANDBY ASSIST AND USE OF CANE. IV ACCESS ON LAC 20G, INTACT AND PATENT, FLUSHES EASILY WITH NO RESISTANCE. BED IN LOWEST POSITION, CALL LIGHT WITHIN REACH, SIDE RAILS UP X2. WILL CONTINUE PLAN OF CARE AND ANTICIPATE NEEDS..
[2022-07-16] MEDS: BLOOD SUGAR DIAGNOSTIC 1 EACH STRIP IN SCH ×4 (07:46→22:24)
[2022-07-16 08:00] VITALS: BP 141/69
[2022-07-16 08:04] LABS: ALBUMIN 3.2 g/dL (3.4-5.0); BILIRUBIN,TOTAL 0.6 mg/dL (0.2-1.0); CALCIUM, SERUM 9.3 mg/dL (8.5-10.1); CREATININE 0.8 mg/dL (0.6-1.3); MAGNESIUM 2.1 mg/dL (1.8-2.4); PHOSPHORUS 3.8 mg/dL (2.5-4.9); POTASSIUM 3.3 mmol/L (3.5-5.1); TOTAL PROTEIN, SERUM 6.9 g/dL (6.4-8.2)
[2022-07-16] MEDS: LOSARTAN POTASSIUM 50 MG TABLET PO SCH (09:37)
[2022-07-16] MEDS: hydrALAZINE HCL 50 MG TABLET PO SCH ×3 (09:37→16:33)
[2022-07-16] MEDS: METOPROLOL TARTRATE 50 MG TABLET PO SCH ×2 (09:37→16:33)
[2022-07-16] MEDS: DIGOXIN 0.25 MG TABLET PO SCH (09:38)
[2022-07-16] MEDS: ISOSORBIDE MONONITRATE (30MG) 30 MG TAB.SR.24H PO SCH (09:41)
[2022-07-16] MEDS: AMBRISENTAN 5 MG PO SCH (09:41)
[2022-07-16] MEDS: GABAPENTIN 300 MG CAPSULE PO SCH (09:42)
[2022-07-16] MEDS: ATORVASTATIN 10 MG TABLET PO SCH (09:42)
[2022-07-16] MEDS: RIVAROXABAN 10 MG TABLET PO SCH (09:43)
[2022-07-16] MEDS: FUROSEMIDE 100 MG/10 ML VIAL IV SCH ×3 (09:47→16:33)
[2022-07-16] MEDS: POTASSIUM CHLORIDE 20 MEQ TAB.PRT.SR PO SCH ×3 (10:31→12:03)
[2022-07-16 12:00] VITALS: BP 109/69
[2022-07-16 16:00] VITALS: BP 120/58
--- NOTE | 2022-07-16 19:10 | NUR ---
RN CLOSING NOTE PT IN BED, AWAKE, A&O X4, CALM, COOPERATIVE. ON 2L NC WITH O2SAT RANGING FROM 92%- 94%; NO S/S OF RESP DISTRESS, NO SOB OR COUGH, NON-LABORED AND EQUAL BREATHING. PT ATTACHED TO EXTERNAL MONITOR, AV PACING WITH HR RANGING FROM 78- 91. PT NOTED TO BE AMBULATORY WITH STANDBY ASSIST AND USE OF CANE. IV ACCESS ON LAC 20G, INTACT AND PATENT, FLUSHES EASILY WITH NO RESISTANCE. BED IN LOWEST POSITION, CALL LIGHT WITHIN REACH, SIDE RAILS UP X2. ALL DUE MEDICATIONS ADMINISTERED. ENDORSED TO NIGHTSHIFT RN FOR CONTINUATION OF CARE.
[2022-07-16 20:00] VITALS: BP 127/65
[2022-07-16] MEDS: TRAMADOL HCL 50 MG TABLET PO PRN (20:53)
[2022-07-17] VITALS: BP 133/78
--- NOTE | 2022-07-17 00:47 | NUR ---
ANDREA/RN PATIENT IS SLEEPING AT THIS TIME, NO SIGNS OF DISTRESS NOTED, CALL LIGHT IN REACH, WILL CONTINUE TO MONITOR.
[2022-07-17] MEDS: IPRATROPIUM/ALBUTEROL INHALER IH SCH (03:16)
[2022-07-17 04:44] VITALS: BP 138/76
--- NOTE | 2022-07-17 06:49 | NUR ---
ANDREA/RN PATIENT IS STILL SLEEPING AT THIS TIME, NO SIGNS OF DISTRESS NOTED, ALL NEEDS ATTENDED AT THIS TIME, WILL CONTINUE TO MONITOR.
[2022-07-17 07:10] LABS: BASOPHILS # (AUTO) 0.1 K/uL (0.0-0.2); BASOPHILS % (AUTO) 1.1 % (0.0-2.0); EOSINOPHILS % (AUTO) 1.5 % (0.0-6.0); HEMATOCRIT 33 % (33-45); HEMOGLOBIN 10.6 g/dL (11.5-14.8); LYMPHOCYTES # (AUTO) 2.1 K/uL (0.8-4.8); LYMPHOCYTES % (AUTO) 19.6 % (20.0-44.0); MEAN CORPUSCULAR HGB CONC 32 g/dl (31.0-36.0); MEAN CORPUSCULAR VOLUME 84 fL (82-100); MONOCYTES # (AUTO) 0.9 K/uL (0.1-1.30); MONOCYTES % (AUTO) 8.4 % (2.0-12.0); NEUTROPHILS # (AUTO) 7.4 K/uL (1.8-8.9); NEUTROPHILS % (AUTO) 69.4 % (43.0-81.0); PLATELET COUNT (AUTO) 312 K/uL (150-450); RED BLOOD CELL COUNT(AUTO) 3.88 MIL/uL (4.0-5.2); WHITE BLOOD COUNT (AUTO) 10.7 K/uL (4.3-11.0)
--- NOTE | 2022-07-17 07:30 | NUR ---
rn opening note patient is in bed. patient is awake, patient is alert and oriented x4.patient is on 2L nasal cannula with 02 saturating at 96%.no signs of pain or discomfort noted at this time.patient is attached to external monitor. patient is av pacing.patient is ambulatory uses a cane with standby assistance.iv access on left arm 20 guage. iv intact and patent, flushes well.all safety measures in place. call light within reach. bed locked at lowest position. side rails up x2. bed alarm on.
[2022-07-17 07:47] LABS: ALANINE AMINOTRANSFERASE 19 U/L (12-78); ALBUMIN 3.5 g/dL (3.4-5.0); ALKALINE PHOSPHATASE 86 U/L (46-116); ASPARTATE AMINOTRANSFERASE 21 U/L (15-37); BILIRUBIN,TOTAL 0.8 mg/dL (0.2-1.0); CALCIUM, SERUM 9.4 mg/dL (8.5-10.1); CARBON DIOXIDE 32 mmol/L (21-32); CHLORIDE 100 mmol/L (98-107); GLUCOSE 123 mg/dL (74-106); MAGNESIUM 2.2 mg/dL (1.8-2.4); PHOSPHORUS 4.2 mg/dL (2.5-4.9); POTASSIUM 3.5 mmol/L (3.5-5.1); SODIUM SERUM 141 mmol/L (136-145); TOTAL PROTEIN, SERUM 7.4 g/dL (6.4-8.2); UREA NITROGEN, BLOOD 18 mg/dL (7-18)
[2022-07-17] MEDS: BLOOD SUGAR DIAGNOSTIC 1 EACH STRIP IN SCH ×4 (07:49→22:52)
[2022-07-17 08:00] VITALS: BP 137/67
[2022-07-17] MEDS: GABAPENTIN 300 MG CAPSULE PO SCH (09:00)
[2022-07-17] MEDS: AMBRISENTAN 5 MG PO SCH (09:00)
[2022-07-17] MEDS ORDERED: FUROSEMIDE 100 MG/10 ML VIAL IV SCH ×2 (09:00→12:00)
[2022-07-17] MEDS: hydrALAZINE HCL 50 MG TABLET PO SCH ×3 (09:00→16:51)
[2022-07-17] MEDS: ATORVASTATIN 10 MG TABLET PO SCH (09:01)
[2022-07-17] MEDS: ISOSORBIDE MONONITRATE (30MG) 30 MG TAB.SR.24H PO SCH (09:01)
[2022-07-17] MEDS: METOPROLOL TARTRATE 50 MG TABLET PO SCH ×2 (09:03→18:04)
[2022-07-17] MEDS: DIGOXIN 0.25 MG TABLET PO SCH (09:05)
[2022-07-17] MEDS: POTASSIUM CHLORIDE 20 MEQ TAB.PRT.SR PO SCH ×2 (09:07→10:37)
[2022-07-17] MEDS: RIVAROXABAN 10 MG TABLET PO SCH (09:09)
--- NOTE | 2022-07-17 09:30 | NUR ---
rn note iv site infiltrated. removed iv site. applied warm compress
--- NOTE | 2022-07-17 11:00 | NUR ---
rn note notified nursing automobile leasing supervisor that iv site infiltrated and patient is hard stick and tried many times. labor mediator nurse came and inserted a new iv site on right 18 gauge. labor mediator nurse notified primary rn that iv site might be infected
--- NOTE | 2022-07-17 11:30 | NUR ---
rn note notified dario sales that iv site infected. dario hutchins made rounds and prescribed oral antibiotics for iv site
[2022-07-17] MEDS: LOSARTAN POTASSIUM 50 MG TABLET PO SCH (11:34)
[2022-07-17 12:00] VITALS: BP 118/58
--- NOTE | 2022-07-17 12:00 | NUR ---
rn note spoke with patient's daughter and provided updates.patient's daughter and patient wants physical therapist to come see patient. called physical therapy and they said they take a look
--- NOTE | 2022-07-17 12:14 | NUR ---
rn note asked dr. lopes if it was okay to give lasix for bp 108/51. said ok to give
[2022-07-17] MEDS: CLINDAMYCIN HCL 150 MG CAPSULE PO SCH ×2 (13:27→17:52)
[2022-07-17 16:00] VITALS: BP 103/55
--- NOTE | 2022-07-17 16:38 | NUR ---
telephone plant power operator note notified if hydralazine can be held due to low bp 103/55 and to put parameters for blood pressure medications. md lopes said yes to both requests
[2022-07-17] MEDS: TRAMADOL HCL 50 MG TABLET PO PRN (17:06)
--- NOTE | 2022-07-17 18:30 | NUR ---
rn note patient daughter called and provided updates. patient daughter asked about physical therapist not seeing her for whole day. charge nurse spoke with patient's daughter that physical therapy order was put in 1200 07/17. explained to patient daughter that physical therapy takes 24 hours to process order. and will follow-up tomorrow morning for physical therapist to come see patient in the morning as soon as possible
--- NOTE | 2022-07-17 19:45 | NUR ---
STAFF PHYSICIAN OPENING NOTE PATIENT AWAKE IN BED WITH FAMILY AT BEDSIDE, ALERT/ORIENTED X 4, PATIENT NEPALI SPEAKING. PATIENT STABLE ON 2 LPM OF OXYGEN VIA NASAL CANNULA, NO S/S OF DISTRESS OR SOB NOTED, BREATHING EVEN AND UNLABORED. PATIENT ON EXTERNAL SNOWBOARD INSTRUCTOR READING SINUS RHYTHM, HR: 70. IV ACCESS ON RAC #18G INTACT AND PATENT, SALINE LOCKED. PATIENT AMBULATORY TO BATHROOM WITH SBA AND CANE. SAFETY MEASURES IN PLACE: CALL LIGHT WITHIN REACH, SIDE RAILS UP X 2, BED LOCKED IN LOWEST POSITION, BED ALARM ON. WILL CONTINUE TO MONITOR PATIENT
--- NOTE | 2022-07-17 19:57 | NUR ---
manager telecom closing note patient is alert and oriented x4. patient is on nasal cannula tolerating at 96%.patient has right ac 18 gauge. iv intact, patent and flushing well. patient complains of no pain or discomfort at this time. patient is able to ambulate with cane, standby assistance. all needs met. all safety measures in place. call light within reach. bed locked at lowest position. side rails up x2. bed alarm on
[2022-07-17 20:00] VITALS: BP 130/62
[2022-07-18] VITALS: BP 133/72
[2022-07-18] MEDS: CLINDAMYCIN HCL 150 MG CAPSULE PO SCH ×3 (00:01→12:00)
[2022-07-18] MEDS: ONDANSETRON HCL/PF 4 MG/2 ML VIAL IVP PRN (00:28)
[2022-07-18] MEDS: IPRATROPIUM/ALBUTEROL INHALER IH SCH ×3 (00:34→13:09)
[2022-07-18 04:00] VITALS: BP 123/68
[2022-07-18] MEDS: BLOOD SUGAR DIAGNOSTIC 1 EACH STRIP IN SCH ×2 (06:35→11:56)
--- NOTE | 2022-07-18 06:39 | NUR ---
ELECTROENCEPHALOGRAM TECHNOLOGIST CLOSING NOTE PATIENT AWAKE IN BED, ALERT/ORIENTED X 4, PRIMARILY CHINESE SPEAKING BUT KNOWS SOME WOLOF AND ABLE TO MAKE NEEDS KNOWN. PATIENT STABLE ON 2 LPM OF OXYGEN VIA NASAL CANNULA, NO S/S OF DISTRESS OR SOB NOTED, BREATHING EVEN AND UNLABORED. PATIENT ON EXTERNAL BROADCAST TECHNICIAN READING CONTROLLED A. FIB/V-PACING, HR: 75. MEDICATIONS GIVEN ORDERED, PT NEEDS MET THROUGHOUT SHIFT, PATIENT AMBULATED TO BATHROOM WITH SBA AND CANE. RIGHT AC #18G IV ACCESS INTACT AND SALINE LOCKED. BLOOD SUGARS WNL, NO COVERAGE NEEDED PER SLIDING SCALE. SAFETY MEASURES IN PLACE: CALL LIGHT WITHIN REACH, SIDE RAILS UP X 2, BED LOCKED IN LOWEST POSITION, BED ALARM ON. WILL ENDORSE TO DAY SHIFT NURSE FOR CONTINUITY OF CARE
[2022-07-18 06:44] LABS: BASOPHILS % (AUTO) 0.3 % (0.0-2.0); EOSINOPHILS % (AUTO) 0.8 % (0.0-6.0); HEMATOCRIT 33 % (33-45); HEMOGLOBIN 10.3 g/dL (11.5-14.8); LYMPHOCYTES # (AUTO) 2.1 K/uL (0.8-4.8); LYMPHOCYTES % (AUTO) 18.3 % (20.0-44.0); MEAN CORPUSCULAR HGB CONC 32 g/dl (31.0-36.0); MEAN CORPUSCULAR VOLUME 85 fL (82-100); MONOCYTES # (AUTO) 1.2 K/uL (0.1-1.30); MONOCYTES % (AUTO) 10.4 % (2.0-12.0); NEUTROPHILS # (AUTO) 7.9 K/uL (1.8-8.9); NEUTROPHILS % (AUTO) 70.2 % (43.0-81.0); PLATELET COUNT (AUTO) 321 K/uL (150-450); RED BLOOD CELL COUNT(AUTO) 3.82 MIL/uL (4.0-5.2); WHITE BLOOD COUNT (AUTO) 11.3 K/uL (4.3-11.0)
[2022-07-18 06:54] LABS: CALCIUM, SERUM 9.7 mg/dL (8.5-10.1); CARBON DIOXIDE 32 mmol/L (21-32); CHLORIDE 98 mmol/L (98-107); CREATININE 0.9 mg/dL (0.6-1.3); GLUCOSE 130 mg/dL (74-106); POTASSIUM 3.6 mmol/L (3.5-5.1); SODIUM SERUM 137 mmol/L (136-145); UREA NITROGEN, BLOOD 16 mg/dL (7-18)
--- NOTE | 2022-07-18 07:00 | NUR ---
RN NOTE RECEIVED PATIENT IN BED RESTING ALERT ORIENTED X4 ON 2L OXYGEN VIA NASAL CANNULA O2:94% IV SITE IS ON RIGHT UPPER ARM INTACT PATENT,AMBULATORY BY CANE CONTIENT BOWEL/BLADDER.SAFETY MEASURE IMPLEMENT BED IN LOW POSITION AND LOCKED,CALL LIGHT WITHIN REACH CONTINUE TO MONITOR.
[2022-07-18 08:00] VITALS: BP 140/64
--- NOTE | 2022-07-18 08:21 | NUR ---
WOUND CARE CONSULT: PT SEEN FOR RAISED AREA TO LEFT FOREARM. DR JORGE CALLED FOR SURGICAL CONSULT. NO DRAINAGE NOTED.
[2022-07-18] MEDS: ISOSORBIDE MONONITRATE (30MG) 30 MG TAB.SR.24H PO SCH (09:09)
[2022-07-18] MEDS: GABAPENTIN 300 MG CAPSULE PO SCH (09:09)
[2022-07-18] MEDS: ATORVASTATIN 10 MG TABLET PO SCH (09:09)
[2022-07-18] MEDS: hydrALAZINE HCL 50 MG TABLET PO SCH ×2 (09:10→13:08)
[2022-07-18] MEDS: LOSARTAN POTASSIUM 50 MG TABLET PO SCH (09:10)
[2022-07-18] MEDS: DIGOXIN 0.25 MG TABLET PO SCH (09:11)
[2022-07-18] MEDS: METOPROLOL TARTRATE 50 MG TABLET PO SCH (09:11)
[2022-07-18] MEDS: RIVAROXABAN 10 MG TABLET PO SCH (09:14)
[2022-07-18] MEDS: AMBRISENTAN 5 MG PO SCH (09:26)
[2022-07-18] MEDS ORDERED: DOXY-326 PO (11:10)
[2022-07-18 12:00] VITALS: BP 114/58
[2022-07-18 13:08] VITALS: BP 114/58
--- NOTE | 2022-07-18 14:20 | NUR ---
VIDEO SYSTEM REPAIRER NOTE PATIENT DISCHARGE IN STABLE CONDITION,ALERT ORIENTED X4 VERBALLY RESPONSIVE ON ROOM AIR O2:93%,NO SOB NOT ACUTE DISTRESS NOTED,IV REMOVED NO BLEEDING NO DISCOMFORT NOTED,SHE SIGNED ALL DISCHARGE PAPER AND BELONGINGS,EDUCATED HER REGARDING MEDS,SHE VERBALIZED UNDERSTOOD ALL TEACHING SHE LEFT HOSPITAL WITH HER DAUGHTER IN STABLE CONDITION BY PRIVATE CAR.
== END 2022-07-18 16:22 | disposition home health service (06) | DRG 280 ==
LOC: ER 03:53 → TRANSITION 06:55 → TELE1 07:00
PROVIDERS: ADMIT Nurse Practitioner Acute Care; ATTEND Nurse Practitioner Acute Care
PROC: 30233N1 Transfusion of Nonautologous Red Blood Cells into Peripheral Vein, Percutaneous Approach (ICD-10-PCS; principal; 2022-07-14)
DX: I11.0 Hypertensive heart disease with heart failure (principal); I21.A1 Myocardial infarction type 2; I50.33 Acute on chronic diastolic (congestive) heart failure; D68.59 Other primary thrombophilia; J98.11 Atelectasis; K76.6 Portal hypertension; L02.414 Cutaneous abscess of left upper limb; G90.8 Other disorders of autonomic nervous system; I48.91 Unspecified atrial fibrillation; I25.10 Atherosclerotic heart disease of native coronary artery without angina pectoris; Z20.822 Contact with and (suspected) exposure to COVID-19; Z95.0 Presence of cardiac pacemaker; Z90.49 Acquired absence of other specified parts of digestive tract; Z88.0 Allergy status to penicillin; Z79.01 Long term (current) use of anticoagulants; Z79.899 Other long term (current) drug therapy; E78.5 Hyperlipidemia, unspecified; E11.42 Type 2 diabetes mellitus with diabetic polyneuropathy; F32.A Depression, unspecified; I27.20 Pulmonary hypertension, unspecified; I25.2 Old myocardial infarction; E87.6 Hypokalemia; K74.60 Unspecified cirrhosis of liver; Z87.891 Personal history of nicotine dependence; I34.0 Nonrheumatic mitral (valve) insufficiency
CPT/HCPCS: 36415; 71045-TC; 80048-TC; 80053-TC; 82962-TC; 83605-TC; 83735-TC; 84100-TC; 84484-TC; 85025-TC; 85027-TC; 86850-TC; 87081-TC; 93307-TC; 94799-TC; 97112-TC; 97116-TC; 97530-TC; G0378; J1815; J1940; J2270; J2405; J3490; J7030; J7050; P9016; Q9967

== ENCOUNTER 2024-03-27 17:11 | Inpatient (IN) | payer MEDICARE, OTHER ==
[~2024-03-27] VITALS: Ht 162.6 cm; Wt 60.0 kg
[~2024-03-27 17:11] MED LIST changes: +DOXY-326 PO
[2024-03-27 18:06] LABS: BASOPHILS # (AUTO) 0.1 K/uL (0.0-0.2); BASOPHILS % (AUTO) 0.1 % (0.0-2.0); EOSINOPHILS # (AUTO) 0.8 K/uL (0.0-0.7); EOSINOPHILS % (AUTO) 0.4 % (0.0-6.0); HEMATOCRIT 35 % (33-45); HEMOGLOBIN 11.6 g/dL (11.5-14.8); LYMPHOCYTES # (AUTO) 11.2 K/uL (0.8-4.8); LYMPHOCYTES % (AUTO) 5.6 % (20.0-44.0); MEAN CORPUSCULAR HEMOGLOBIN 32 PG (26.0-33.0); MEAN CORPUSCULAR HGB CONC 33 g/dl (31.0-36.0); MEAN CORPUSCULAR VOLUME 97 fL (82-100); MONOCYTES # (AUTO) 164.4 K/uL (0.1-1.30); MONOCYTES % (AUTO) 81.8 % (2.0-12.0); NEUTROPHILS # (AUTO) 24.4 K/uL (1.8-8.9); NEUTROPHILS % (AUTO) 12.1 % (43.0-81.0); PLATELET COUNT (AUTO) 247 K/uL (150-450); RED BLOOD CELL COUNT(AUTO) 3.64 MIL/uL (4.0-5.2); RED CELL DISTRIBUTION WIDTH 19.1 % (11.5-15.0)
[2024-03-27] MEDS ORDERED: IOHEXOL-350 100 ML VIAL IV ONE (18:11)
[2024-03-27] MEDS ORDERED: IV NS 0.9% 250 ML IV ONE (18:12)
[2024-03-27] MEDS ORDERED: CT SWABBABLE VALVE TRANS SET 1 EA INFUS.SET MC ONE (18:12)
[2024-03-27 18:13] LABS: CALCIUM, SERUM 11.2 mg/dL (8.5-10.1); CARBON DIOXIDE 28 mmol/L (21-32); CHLORIDE 95 mmol/L (98-107); CREATININE 2.3 mg/dL (0.6-1.3); GLUCOSE 170 mg/dL (74-106); SODIUM SERUM 135 mmol/L (136-145); UREA NITROGEN, BLOOD 12 mg/dL (7-18)
[2024-03-27 18:23] LABS: POTASSIUM 2.5 mmol/L (3.5-5.1)
[2024-03-27 18:25] LABS: MAGNESIUM 2.1 mg/dL (1.8-2.4)
[2024-03-27 18:26] LABS: ALANINE AMINOTRANSFERASE 22 U/L (12-78); ALBUMIN 3.2 g/dL (3.4-5.0); ALKALINE PHOSPHATASE 119 U/L (46-116); ASPARTATE AMINOTRANSFERASE 59 U/L (15-37); BILIRUBIN,DIRECT 0.7 mg/dL (0.0-0.2); BILIRUBIN,TOTAL 1.3 mg/dL (0.2-1.0); LIPASE 17 U/L (16-77); TOTAL PROTEIN, SERUM 6.7 g/dL (6.4-8.2)
[2024-03-27 18:46] LABS: WHITE BLOOD COUNT (AUTO) 200.9 K/uL (4.3-11.0)
[2024-03-27] MEDS ORDERED: METO25TA20 PO (18:55)
[2024-03-27] MEDS ORDERED: MONT10TA22 PO (18:55)
[2024-03-27] MEDS ORDERED: APIX5TAB PO (18:55)
[2024-03-27] MEDS ORDERED: POTA-88 PO (18:55)
[2024-03-27] MEDS ORDERED: HYDR-4076 PO (18:55)
[2024-03-27] MEDS: POTASSIUM CHLORIDE 20 MEQ POWDER PACKET PO ONE (18:59)
[2024-03-27] MEDS: ASPIRIN 325 MG TABLET PO ONE (19:33)
[2024-03-27 20:40] LABS: APPEARANCE,URINE CLEAR (CLEAR); BILIRUBIN,URINE 2+ (NEGATIVE); BLOOD, URINE NEGATIVE Ery/uL (NEGATIVE); COLOR,URINE YELLOW (YELLOW); KETONES,URINE TRACE mg/dL (NEGATIVE); LEUKOCYTE ESTERASE ,URINE NEGATIVE (NEGATIVE); NITRITE, URINE NEGATIVE (NEGATIVE); PROTEIN,URINE 2+ mg/dl (NEGATIVE); UGLUCOSE TRACE mg/dL (NEGATIVE)
[2024-03-27 20:57] LABS: ADD URINE CULTURE NO; BACTERIA,URINE None seen /HPF (None Seen); RBC,URINE 0-2 /HPF (0-2); URINE AMORPHOUS URATE Many /HPF (None Seen); WBC,URINE 0-2 /HPF (0-3)
[2024-03-27 21:21] LABS: BAND % (MANUAL) 2 % (0.0-5.0); EOSINOPHILS % (MANUAL) 1 % (0-4); LYMPHOCYTES % (MANUAL) 4 % (16-48); MONOCYTES % (MANUAL) 83 % (0-11.0); NEUTROPHILS % (MANUAL) 10 (42-76); PLATELET ESTIMATE ADEQU
[2024-03-27 21:22] LABS: ANISOCYTOSIS 1+; ROULEAUX 1+
[2024-03-27] MEDS ORDERED: ZOLPIDEM TARTRATE 5 MG TABLET PO PRN (22:00)
[2024-03-27] MEDS ORDERED: MAGNESIUM HYDROXIDE 30 ML UDC PO PRN (22:00)
[2024-03-27] MEDS ORDERED: ONDANSETRON HCL/PF 4 MG/2 ML VIAL IVP PRN (22:00)
[2024-03-27] MEDS ORDERED: NITROGLYCERIN 0.4 MG/TAB BOTTLE SL PRN (22:00)
[2024-03-27] MEDS ORDERED: FUROSEMIDE 20 MG/2 ML VIAL IV SCH (22:00)
[2024-03-27] MEDS ORDERED: MAG HYDROX/AL HYDROX/SIMETH 30 ML UDC PO PRN (22:00)
[2024-03-27] MEDS ORDERED: IPRATROPIUM NEB FS 0.5 MG/2.5 ML AMPUL.NEB NEB PRN (22:00)
[2024-03-27] MEDS ORDERED: ALBUTEROL FS 2.5 MG/3 ML VIAL.NEB NEB PRN (22:00)
[2024-03-27] MEDS ORDERED: Z GUARD REMEDY 4 OZ OINT TP PRN (22:00)
[2024-03-27] MEDS ORDERED: AZITHROMYCIN 500 MG VIAL ONE (22:13)
[2024-03-27] MEDS: ENOXAPARIN SODIUM 30 MG/0.3 ML DISP.SYRIN SQ ONE (22:15)
[2024-03-27] MEDS: AZITHROMYCIN 500 MG in IV D5W 250 ML IV ONE (22:24)
[2024-03-27] MEDS: IV NS 0.9% 500 ML IV ONE (22:56)
[2024-03-27 23:30] VITALS: BP 80/56; O2SAT 92
[2024-03-27 23:34] VITALS: BP 80/56; TEMP 99.4; O2SAT 92
[2024-03-27 23:45] VITALS: BP 90/66; O2SAT 95
[2024-03-27] MEDS: NOREPINEPHRINE 8 MG in IV D5W 242 ML IV PRN (23:58)
[2024-03-28] VITALS (93 sets, daily range): BP systolic 75–130; BP diastolic 31–90; TEMP 98–99.8; O2SAT 86–99
[2024-03-28] MEDS: Magnesium 1GM/D5W 100ML PREMIX 100 ML IV SCH (00:16)
[2024-03-28] MEDS: NOREPINEPHRINE 8MG/250ML RTU 250 ML IV ONE (00:18)
[2024-03-28 00:28] LABS: BASOPHILS # (AUTO) 0.1 K/uL (0.0-0.2); BASOPHILS % (AUTO) 0.1 % (0.0-2.0); EOSINOPHILS # (AUTO) 4.2 K/uL (0.0-0.7); EOSINOPHILS % (AUTO) 1.8 % (0.0-6.0); HEMATOCRIT 35 % (33-45); HEMOGLOBIN 11.5 g/dL (11.5-14.8); LYMPHOCYTES # (AUTO) 14.3 K/uL (0.8-4.8); LYMPHOCYTES % (AUTO) 6.1 % (20.0-44.0); MEAN CORPUSCULAR HEMOGLOBIN 32 PG (26.0-33.0); MEAN CORPUSCULAR HGB CONC 33 g/dl (31.0-36.0); MEAN CORPUSCULAR VOLUME 98 fL (82-100); MONOCYTES # (AUTO) 179.2 K/uL (0.1-1.30); NEUTROPHILS # (AUTO) 34.8 K/uL (1.8-8.9); PLATELET COUNT (AUTO) 243 K/uL (150-450); RED BLOOD CELL COUNT(AUTO) 3.58 MIL/uL (4.0-5.2); RED CELL DISTRIBUTION WIDTH 19.9 % (11.5-15.0)
[2024-03-28 00:32] LABS: WHITE BLOOD COUNT (AUTO) 232.6 K/uL (4.3-11.0)
[2024-03-28 00:42] LABS: CALCIUM, SERUM 11.1 mg/dL (8.5-10.1); CARBON DIOXIDE 24 mmol/L (21-32); CHLORIDE 97 mmol/L (98-107); CREATININE 2.6 mg/dL (0.6-1.3); GLUCOSE 180 mg/dL (74-106); POTASSIUM 3.2 mmol/L (3.5-5.1); SODIUM SERUM 135 mmol/L (136-145); UREA NITROGEN, BLOOD 13 mg/dL (7-18)
[2024-03-28 01:13] LABS: ANISOCYTOSIS 1+; BAND % (MANUAL) 3 % (0.0-5.0); BASOPHILS % (MANUAL) 0 % (0.0-2.0); EOSINOPHILS % (MANUAL) 2 % (0-4); LYMPHOCYTES % (MANUAL) 5 % (16-48); MONOCYTES % (MANUAL) 72 % (0-11.0); NEUTROPHILS % (MANUAL) 18 (42-76); PLATELET ESTIMATE ADEQUATE
[2024-03-28] MEDS: IV NS 0.9% 250 ML IV PRN (01:34)
[2024-03-28 05:19] LABS: BASOPHILS # (AUTO) 0.6 K/uL (0.0-0.2); BASOPHILS % (AUTO) 0.2 % (0.0-2.0); EOSINOPHILS # (AUTO) 10.1 K/uL (0.0-0.7); EOSINOPHILS % (AUTO) 3.9 % (0.0-6.0); HEMATOCRIT 40 % (33-45); HEMOGLOBIN 12.7 g/dL (11.5-14.8); LYMPHOCYTES # (AUTO) 14.5 K/uL (0.8-4.8); LYMPHOCYTES % (AUTO) 5.6 % (20.0-44.0); MEAN CORPUSCULAR HEMOGLOBIN 32 PG (26.0-33.0); MEAN CORPUSCULAR HGB CONC 32 g/dl (31.0-36.0); MEAN CORPUSCULAR VOLUME 98 fL (82-100); MONOCYTES # (AUTO) 205.4 K/uL (0.1-1.30); MONOCYTES % (AUTO) 79.9 % (2.0-12.0); NEUTROPHILS # (AUTO) 26.7 K/uL (1.8-8.9); NEUTROPHILS % (AUTO) 10.4 % (43.0-81.0); PLATELET COUNT (AUTO) 241 K/uL (150-450); RED BLOOD CELL COUNT(AUTO) 4.04 MIL/uL (4.0-5.2); RED CELL DISTRIBUTION WIDTH 20.3 % (11.5-15.0)
[2024-03-28 05:21] LABS: WHITE BLOOD COUNT (AUTO) 257.4 K/uL (4.3-11.0)
[2024-03-28 05:41] LABS: ALANINE AMINOTRANSFERASE 24 U/L (12-78); ALBUMIN 3.4 g/dL (3.4-5.0); ALKALINE PHOSPHATASE 142 U/L (46-116); ASPARTATE AMINOTRANSFERASE 78 U/L (15-37); BILIRUBIN,DIRECT 0.5 mg/dL (0.0-0.2); BILIRUBIN,TOTAL 1.1 mg/dL (0.2-1.0); CARBON DIOXIDE 24 mmol/L (21-32); CHLORIDE 96 mmol/L (98-107); CREATININE 2.7 mg/dL (0.6-1.3); GLUCOSE 153 mg/dL (74-106); MAGNESIUM 3.4 mg/dL (1.8-2.4); NT-PRO BNP > 25000 pg/mL (0-125); SODIUM SERUM 135 mmol/L (136-145); TOTAL PROTEIN, SERUM 7.4 g/dL (6.4-8.2); UREA NITROGEN, BLOOD 12 mg/dL (7-18)
[2024-03-28 05:44] LABS: CHOLESTEROL 89 mg/dL (<200); HDL CHOLESTEROL 38 mg/dL (40-60); LDL 29 mg/dL (0-99); THYROID STIMULATING HORMONE 1.685 uIU/mL (0.358-3.74); TRIGLYCERIDES 167 mg/dL (30-150)
[2024-03-28 05:51] LABS: LACTIC ACID 1.8 mmol/L (0.4-2.0)
[2024-03-28 06:08] LABS: PHOSPHORUS 0.3 mg/dL (2.5-4.9); POTASSIUM 2.8 mmol/L (3.5-5.1)
[2024-03-28] MEDS ORDERED: K PHOS NEUTRAL 250 MG TABLET PO ONE (07:00)
[2024-03-28] MEDS ORDERED: PANTOPRAZOLE 40 MG TABLET.DR PO SCH (07:30)
[2024-03-28] MEDS: POTASSIUM CL. PREMIX PERIPHER. 50 ML IV SCH (08:35)
[2024-03-28] MEDS: PANTOPRAZOLE 40 MG VIAL IV SCH (08:35)
[2024-03-28] MEDS: POTASSIUM PHOSPHATE MM 15 MMOL in IV NS 0.9% 250 ML IV SCH (09:25)
[2024-03-28] MEDS: HYDROCORTISONE SOD SUCCINATE 100 MG/2 ML VIAL IV SCH (10:00)
[2024-03-28] MEDS ORDERED: ALLOPURINOL 100 MG TABLET PO SCH (10:00)
[2024-03-28] MEDS ORDERED: MEROPENEM 500 MG in IV NS 0.9% 50 ML IV SCH (10:30)
[2024-03-28 11:04] LABS: RHEUMATOID FACTOR SCREEN NEGATIVE (NEGATIVE)
[2024-03-28 11:09] LABS: D-DIMER 3.4 mg/L(FEU (0.17-0.50); INR 1.37 (0.91-1.10); PARTIAL THROMBOPLASTIN TIME 31.5 SEC (24.3-34.3); PROTHROMBIN TIME 14.2 SECS (9.2-11.1)
[2024-03-28 11:11] LABS: C-REACTIVE PROTEIN 1.21 mg/dL (0.0-0.30); URIC ACID 19.7 mg/dL (2.6-7.2)
[2024-03-28] MEDS: HYDROXYUREA 500 MG CAPSULE PO SCH (11:16)
[2024-03-28] MEDS: IV NS 0.9% 500 ML IV ONE (11:16)
[2024-03-28] MEDS: MEROPENEM 500 MG in IV NS 0.9% 50 ML IV SCH (11:21)
[2024-03-28] MEDS ORDERED: DOSE PER PHARMACY (MD SPECIFY MEDICATION) 1 EA XX STA (12:20)
[2024-03-28] MEDS: ACETAMINOPHEN 325 MG TABLET PO PRN (13:38)
[2024-03-28] MEDS ORDERED: IV NS 0.9% 1,000 ML IV PRN (14:00)
[2024-03-28 14:51] LABS: CALCIUM, SERUM 11.2 mg/dL (8.5-10.1); CARBON DIOXIDE 24 mmol/L (21-32); CHLORIDE 100 mmol/L (98-107); CREATININE 2.7 mg/dL (0.6-1.3); GLUCOSE 152 mg/dL (74-106); SODIUM SERUM 137 mmol/L (136-145); UREA NITROGEN, BLOOD 13 mg/dL (7-18)
[2024-03-28] MEDS: PAMIDRONATE 90 MG in IV NS 0.9% 500 ML IV ONE (15:09)
[2024-03-28] MEDS: ACYCLOVIR 200 MG CAPSULE PO SCH (17:26)
[2024-03-28] MEDS: VORICONAZOLE 200 MG TABLET PO SCH (17:26)
[2024-03-28] MEDS: LORAZEPAM INJ 2 MG/ML VIAL IV ONE (19:00)
[2024-03-28] MEDS ORDERED: SODIUM BICARBONATE SYR 50 MEQ/50 ML DISP.SYRIN ONE (19:21)
[2024-03-28] MEDS: SODIUM BICARBONATE SYR 50 MEQ/50 ML DISP.SYRIN IV ONE (19:52)
[2024-03-28] MEDS ORDERED: ENOXAPARIN SODIUM 30 MG/0.3 ML DISP.SYRIN SQ SCH (21:00)
[2024-03-28] MEDS ORDERED: AZITHROMYCIN 500 MG in IV D5W 250 ML IV SCH (21:00)
[2024-03-29 07:25] LABS: ABG BASE EXCESS -8.3 mmol/L; ABG OXYGEN SATURATION 90.4 % (92.0-98.5); ABG PCO2 28.9 mmHg (35.0-45.0); ABG PH 7.355 (7.350-7.450); ABG PO2 58.6 mmHg (75.0-100.0); ABG TOTAL HEMOGLOBIN 13.2 G/dL (12.0-16.0); AaDO2 337.4 mmHg; COHb 0.1 % (0.5-1.5); MetHb 0.6 % (0.0-1.5); O2Hb 89.8 % (94.0-97.0); SITE, ABG Right Radial
[2024-03-30 10:07] LABS: *ANA ANTI-CENTROMERE B AB <0.2 AI (0.0-0.9); *ANA ANTI-DNA(DS) AB, QN 1 IU/mL (0-9); *ANA ANTI-JO-1 <0.2 AI (0.0-0.9); *ANA ANTICHROMATIN ANTIBODY <0.2 AI (0.0-0.9); *ANA RNP ANTIBODIES <0.2 AI (0.0-0.9); *ANA SJOGREN'S ANTI-SS-A <0.2 AI (0.0-0.9); *ANA SJOGREN'S ANTI-SS-B <0.2 AI (0.0-0.9); *ANAANTI-SCLERODERMA-70 AB <0.2 AI (0.0-0.9); *ANASMITH AB <0.2 AI (0.0-0.9)
[2024-03-31 02:09] LABS: HEPATITIS B SURFACE AB Non Reactive (.)
== END 2024-03-28 20:14 | disposition short-term general hospital (02) | DRG 834 ==
LOC: ER 17:15 → TELE1 20:29 → ICU 23:15
PROVIDERS: ADMIT Nurse Practitioner Family; ATTEND Internal Medicine
PROC: 02HV33Z Insertion of Infusion Device into Superior Vena Cava, Percutaneous Approach (ICD-10-PCS; principal; 2024-03-28)
PROC: B548ZZA Ultrasonography of Superior Vena Cava, Guidance (ICD-10-PCS; 2024-03-28)
PROC: 05HM33Z Insertion of Infusion Device into Right Internal Jugular Vein, Percutaneous Approach (ICD-10-PCS; 2024-03-28)
PROC: B543ZZA Ultrasonography of Right Jugular Veins, Guidance (ICD-10-PCS; 2024-03-28)
DX: C92.00 Acute myeloblastic leukemia, not having achieved remission (principal); E88.3 Tumor lysis syndrome; J96.01 Acute respiratory failure with hypoxia; G93.41 Metabolic encephalopathy; I21.A1 Myocardial infarction type 2; N17.0 Acute kidney failure with tubular necrosis; I50.31 Acute diastolic (congestive) heart failure; D68.69 Other thrombophilia; K76.6 Portal hypertension; E11.9 Type 2 diabetes mellitus without complications; E78.5 Hyperlipidemia, unspecified; E83.39 Other disorders of phosphorus metabolism; E83.52 Hypercalcemia; E87.6 Hypokalemia; E86.0 Dehydration; I11.0 Hypertensive heart disease with heart failure; I25.10 Atherosclerotic heart disease of native coronary artery without angina pectoris; I48.91 Unspecified atrial fibrillation; Z87.891 Personal history of nicotine dependence; Z86.711 Personal history of pulmonary embolism; Z88.0 Allergy status to penicillin; Z95.0 Presence of cardiac pacemaker; Z79.01 Long term (current) use of anticoagulants; K74.60 Unspecified cirrhosis of liver; I27.20 Pulmonary hypertension, unspecified; Z20.822 Contact with and (suspected) exposure to COVID-19; R53.1 Weakness; R91.8 Other nonspecific abnormal finding of lung field; R16.1 Splenomegaly, not elsewhere classified
CPT/HCPCS: 36415; 36569; 36600; 70450-TC; 71045-TC; 71250-TC; 80048-TC; 80061-TC; 80076-TC; 81001; 82533; 82803-TC; 82962-TC; 83605-TC; 83615-TC; 83690-TC; 83735-TC; 83880; 84100-TC; 84443-TC; 84484-TC; 84550-TC; 85025-TC; 85396; 86140-TC; 86225; 86235; 86431-TC; 86706; 86803; 87040-TC; 87086-TC; 87340; 93307-TC; 94799-TC; A4223; A6403; C9113; G0378; J0456; J1650; J1720; J2060; J2185; J2430; J3475; J3480; J3490; J7030; J7040; J7050; J7060; Q9967